=== PATIENT | male | born 1990 | race Caucasian/White ===

== ENCOUNTER 2016-07-03 20:56 | Emergency (ER) | payer MEDICAID, OTHER ==
[~2016-07-03] VITALS: Ht 167.6 cm; Wt 81.8 kg
[~2016-07-03 20:56] MED LIST: BENZ1TAB10 PO; DIVA500T35 PO; RISP2 PO; TRAZ-144 PO
[2016-07-03] MEDS ORDERED: MEDR10TA11 PO (21:06)
[2016-07-03] MEDS ORDERED: BUSP15 PO (21:06)
[2016-07-03] MEDS ORDERED: QUET25TA PO (21:06)
[2016-07-03] MEDS ORDERED: QUET400T54 PO (21:06)
[2016-07-04] MEDS ORDERED: PERTUSS(ACELL),DIPH,TET VAC/PF 0.5 ML VIAL IM ONE (00:15)
[2016-07-04] MEDS ORDERED: SILVER SULFADIAZINE 1% 20 GM CREAM TP ONE (00:15)
[2016-07-04 00:26] VITALS: BP 146/89
== END 2016-07-04 00:38 | disposition home or self-care (01) ==
LOC: EMS 20:58
DX: T24.211A Burn of second degree of right thigh, initial encounter (principal); F17.210 Nicotine dependence, cigarettes, uncomplicated; X08.8XXA Exposure to other specified smoke, fire and flames, initial encounter; Y93.89 Activity, other specified; Y92.89 Other specified places as the place of occurrence of the external cause; Y99.8 Other external cause status
CPT/HCPCS: 16020; 90471; 90715; 99284; 99406; Z7610

== ENCOUNTER 2017-04-29 21:17 | Emergency (ER) | payer OTHER ==
[~2017-04-29] VITALS: Ht 170.2 cm; Wt 72.7 kg
[~2017-04-29 21:17] MED LIST changes: +BUSP15 PO; +MEDR10TA11 PO; +QUET25TA PO; +QUET400T54 PO; -TRAZ-144 PO
[2017-04-29 22:48] VITALS: BP 132/82
== END 2017-04-29 22:54 | disposition home or self-care (01) ==
LOC: EMS 21:34
DX: S93.602A Unspecified sprain of left foot, initial encounter (principal); F17.210 Nicotine dependence, cigarettes, uncomplicated; X58.XXXA Exposure to other specified factors, initial encounter; Y93.89 Activity, other specified; Y92.89 Other specified places as the place of occurrence of the external cause; Y99.8 Other external cause status
CPT/HCPCS: 29515; 99284

== ENCOUNTER 2019-05-21 09:57 | Emergency (ER) | payer OTHER ==
[~2019-05-21] VITALS: Ht 177.8 cm; Wt 100.0 kg
[~2019-05-21 09:57] MED LIST changes: +DIVA-78 PO; -DIVA500T35 PO
[2019-05-21] MEDS ORDERED: TRAZ150 PO (10:05)
[2019-05-21] MEDS ORDERED: ATOR20TA86 PO (10:05)
[2019-05-21] MEDS ORDERED: IBUPROFEN 600 MG TABLET PO ONE (11:15)
[2019-05-21] MEDS ORDERED: CLINDAMYCIN HCL 150 MG CAPSULE PO ONE (11:15)
[2019-05-21] MEDS ORDERED: ACETAMINOPHEN 500 MG TABLET PO ONE (11:15)
[2019-05-21] MEDS ORDERED: SODIUM CHLORIDE 0.9% 1,000 ML IV ONE (12:00)
[2019-05-21] MEDS ORDERED: SODIUM CHLORIDE 0.9% 100 ML ONE (12:11)
[2019-05-21] MEDS ORDERED: IOVERSOL 350 MG/ML 100 ML VIAL ONE (12:11)
[2019-05-21 13:08] LABS: AMPHET/METH SCREEN,URINE NEGATIVE (NEGATIVE); BARBITURATE SCREEN, URINE NEGATIVE (NEGATIVE); BENZODIAZEPINES SCREEN,URINE NEGATIVE (NEGATIVE); CANNABINOID SCREEN,URINE NEGATIVE (NEGATIVE); COCAINE SCREEN,URINE NEGATIVE (NEGATIVE); METHADONE SCREEN, URINE NEGATIVE (NEGATIVE); OPIATE SCREEN,URINE NEGATIVE (NEGATIVE)
[2019-05-21 13:09] LABS: PHENCYCLIDINE SCREEN,URINE NEGATIVE (NEGATIVE)
[2019-05-21 13:18] LABS: BASOPHILS % (AUTO) 0.7 % (0.0-2.0); EOSINOPHILS % (AUTO) 0.9 % (1.0-6.0); HEMATOCRIT 38.5 % (41-53); HEMOGLOBIN 12.8 g/dL (13.5-17.5); LYMPHOCYTES # (AUTO) 2.8 K/uL (1.0-4.8); LYMPHOCYTES % (AUTO) 30.3 % (22.0-44.0); MEAN CORPUSCULAR HEMOGLOBIN 28.9 pg (26.0-34.0); MEAN CORPUSCULAR HGB CONC 33.3 G/dL (31.0-37.0); MEAN CORPUSCULAR VOLUME 87 fL (80-100); MONOCYTES # (AUTO) 1.1 K/uL (0.1-1.0); NEUTROPHILS # (AUTO) 5.2 K/uL (1.8-7.7); NEUTROPHILS % (AUTO) 56.1 % (40.0-70.0); PLATELET COUNT (AUTO) 281 K/uL (150-450); RED BLOOD CELL COUNT(AUTO) 4.43 MIL/uL (4.50-5.90); RED CELL DISTRIBUTION WIDTH 13.7 % (11.5-14.5)
[2019-05-21 13:34] LABS: ANION GAP 8 mmol/L (8-16); CALCIUM, TOTAL 8.6 mg/dL (8.8-10.5); CARBON DIOXIDE 29 mmol/L (22-29); CHLORIDE 102 mmol/L (98-107); CREATININE 0.76 mg/dL (0.60-1.30); GLOMERULAR FILTR. RATE CALC > 60 mL/min (>60); GLUCOSE,RANDOM 69 mg/dL (70-110); POTASSIUM 3.5 mmol/L (3.5-5.1); SODIUM SERUM 139 mmol/L (136-145); UREA NITROGEN, BLOOD 7 mg/dL (7-18)
[2019-05-21 13:58] LABS: CREATINE KINASE, TOTAL ONLY 97 U/L (39-308)
[2019-05-21 14:19] VITALS: BP 138/68
== END 2019-05-21 14:24 | disposition home or self-care (01) ==
LOC: EMS 09:59
DX: S02.5XXA Fracture of tooth (traumatic), initial encounter for closed fracture (principal); K02.9 Dental caries, unspecified; F17.210 Nicotine dependence, cigarettes, uncomplicated; F90.9 Attention-deficit hyperactivity disorder, unspecified type; Z79.899 Other long term (current) drug therapy; X58.XXXA Exposure to other specified factors, initial encounter; Y93.89 Activity, other specified; Y92.89 Other specified places as the place of occurrence of the external cause; Y99.8 Other external cause status
CPT/HCPCS: 36415; 70487; 80048; 80307; 82550; 85025; 99285; J7030; J7050; Q9967

== ENCOUNTER 2020-06-02 11:38 | Inpatient (IN) | payer MEDICAID, OTHER ==
[~2020-06-02] VITALS: Ht 172.7 cm; Wt 80.9 kg
[~2020-06-02 11:38] MED LIST changes: +ATOR20TA86 PO; +DIVA-112 PO; -DIVA-78 PO; -RISP2 PO; +RISP2TAB45 PO; +TRAZ150 PO
[2020-06-02 12:22] LABS: BASOPHILS % (AUTO) 0.5 % (0.0-2.0); EOSINOPHILS % (AUTO) 2.8 % (1.0-6.0); HEMATOCRIT 37.6 % (41-53); HEMOGLOBIN 12.6 g/dL (13.5-17.5); LYMPHOCYTES # (AUTO) 2.3 K/uL (1.0-4.8); LYMPHOCYTES % (AUTO) 36.4 % (22.0-44.0); MEAN CORPUSCULAR HEMOGLOBIN 28.9 pg (26.0-34.0); MEAN CORPUSCULAR HGB CONC 33.4 G/dL (31.0-37.0); MEAN CORPUSCULAR VOLUME 87 fL (80-100); MONOCYTES # (AUTO) 0.5 K/uL (0.1-1.0); MONOCYTES % (AUTO) 8.7 % (2.0-9.0); NEUTROPHILS # (AUTO) 3.2 K/uL (1.8-7.7); NEUTROPHILS % (AUTO) 51.6 % (40.0-70.0); PLATELET COUNT (AUTO) 284 K/uL (150-450); RED BLOOD CELL COUNT(AUTO) 4.34 MIL/uL (4.50-5.90); RED CELL DISTRIBUTION WIDTH 14.6 % (11.5-14.5)
[2020-06-02 12:33] LABS: APPEARANCE,URINE CLEAR (CLEAR); BILIRUBIN,URINE NEGATIVE (NEGATIVE); GLUCOSE, URINE (UA) NEGATIVE (NEGATIVE); KETONES,URINE TRACE mg/dL (NEGATIVE); LEUKOCYTE ESTERASE ,URINE NEGATIVE (NEGATIVE); NITRATE,URINE NEGATIVE (NEGATIVE); OCCULT BLOOD,URINE NEGATIVE (NEGATIVE); PH,URINE 7.5 (5.0-8.0); PROTEIN,URINE NEGATIVE (NEGATIVE); UROBILINOGEN,URINE 0.2 mg/dL (<=1.0)
[2020-06-02 12:34] LABS: ANION GAP 8 mmol/L (8-16); CARBON DIOXIDE 28 mmol/L (22-29); CHLORIDE 107 mmol/L (98-107); CREATININE 0.89 mg/dL (0.60-1.30); GLOMERULAR FILTR. RATE CALC > 60 mL/min (>60); GLUCOSE,RANDOM 70 mg/dL (70-110); POTASSIUM 4.1 mmol/L (3.5-5.1); SODIUM SERUM 143 mmol/L (136-145); UREA NITROGEN, BLOOD 8 mg/dL (7-18)
[2020-06-02 12:37] LABS: AMPHET/METH SCREEN,URINE POSITIVE (NEGATIVE); BARBITURATE SCREEN, URINE NEGATIVE (NEGATIVE); BENZODIAZEPINES SCREEN,URINE NEGATIVE (NEGATIVE); CANNABINOID SCREEN,URINE NEGATIVE (NEGATIVE); COCAINE SCREEN,URINE NEGATIVE (NEGATIVE); METHADONE SCREEN, URINE NEGATIVE (NEGATIVE); OPIATE SCREEN,URINE NEGATIVE (NEGATIVE); PHENCYCLIDINE SCREEN,URINE NEGATIVE (NEGATIVE)
[2020-06-02 12:41] LABS: ALANINE AMINOTRANSFERASE 18 U/L (12-78); ALBUMIN 3.5 g/dL (3.4-5.0); ALKALINE PHOSPHATASE 60 U/L (46-116); ASPARTATE AMINOTRANSFERASE 7 U/L (15-37); BILIRUBIN,TOTAL 0.2 mg/dL (0.1-1.0); TOTAL PROTEIN, SERUM 6.9 g/dL (6.4-8.2)
[2020-06-02] MEDS ORDERED: HALOPERIDOL 5 MG TABLET PO PRN (16:00)
[2020-06-02] MEDS ORDERED: ZOLPIDEM TARTRATE 10 MG TABLET PO PRN (16:00)
[2020-06-02] MEDS ORDERED: LORazepam 2 MG TABLET PO PRN (16:00)
[2020-06-02 17:13] LABS: COVID AG,FIA SOURCE NASAL SWAB
[2020-06-02] MEDS ORDERED: INFLUENZA VIRUS VACCINE QVS 2020-21 (6MO+)/PF 60 MCG/0.5 ML SYRINGE IM ONE (19:30)
[2020-06-02 19:40] VITALS: BP 131/70
[2020-06-03 04:26] VITALS: BP 127/68
[2020-06-03] MEDS ORDERED: PETROLATUM,WHITE 28 GM JELLY TP PRN (07:15)
[2020-06-03] MEDS ORDERED: ALBUTEROL SULFATE HFA 90 MCG/PUFF 8 GM INHALER IH PRN (07:15)
[2020-06-03] MEDS ORDERED: NICOTINE 14 MG/24 HOUR PATCH TD PRN (07:15)
[2020-06-03] MEDS ORDERED: MAGNESIUM HYDROXIDE SUSPENSION 30 ML UDCUP PO PRN (07:15)
[2020-06-03] MEDS ORDERED: CloNIDine HCL 0.1 MG TABLET PO PRN (07:15)
[2020-06-03] MEDS ORDERED: ONDANSETRON HCL 4 MG TABLET PO PRN (07:15)
[2020-06-03] MEDS ORDERED: MAG HYDROX/AL HYDROX/SIMETH ES 30 ML SUSPENSION UDCUP PO PRN (07:15)
[2020-06-03] MEDS ORDERED: GuaiFENesin/D-METHORPHAN [SUGAR-FREE] 200-20MG/10 ML SYRUP UDCUP PO PRN (07:15)
[2020-06-03] MEDS ORDERED: DOCUSATE SODIUM 100 MG CAPSULE PO PRN (07:15)
[2020-06-03] MEDS ORDERED: LOPERAMIDE HCL 2 MG CAPSULE PO PRN (07:15)
[2020-06-03] MEDS ORDERED: ACETAMINOPHEN 325 MG TABLET PO PRN (07:15)
[2020-06-03] MEDS ORDERED: IBUPROFEN 400 MG TABLET PO PRN (07:15)
[2020-06-03 08:06] VITALS: BP 112/62
[2020-06-03] MEDS: ATORVASTATIN CALCIUM 20 MG TABLET PO SCH (10:32)
[2020-06-03] MEDS: DIVALPROEX SODIUM 500 MG DR TABLET PO SCH ×2 (12:08→16:42)
[2020-06-03] MEDS: BENZTROPINE MESYLATE 1 MG TABLET PO SCH ×2 (12:09→16:42)
[2020-06-03] MEDS: RisperiDONE 2 MG TABLET PO SCH ×2 (12:09→16:42)
[2020-06-03] MEDS: QUEtiapine FUMARATE 200 MG ER TABLET PO SCH ×2 (12:09→16:42)
[2020-06-03] MEDS: BusPIRone HCL 15 MG TABLET PO SCH ×2 (12:09→16:42)
[2020-06-03 16:29] VITALS: BP 115/70
[2020-06-03] MEDS: TraZODone HCL 150 MG TABLET PO SCH (20:40)
[2020-06-04 00:05] VITALS: BP 111/60
[2020-06-04 08:06] VITALS: BP 122/71
[2020-06-04] MEDS: ATORVASTATIN CALCIUM 20 MG TABLET PO SCH (08:14)
[2020-06-04] MEDS: QUEtiapine FUMARATE 200 MG ER TABLET PO SCH ×2 (08:14→16:20)
[2020-06-04] MEDS: DIVALPROEX SODIUM 500 MG DR TABLET PO SCH ×2 (08:14→16:20)
[2020-06-04] MEDS: BusPIRone HCL 15 MG TABLET PO SCH ×2 (08:14→16:20)
[2020-06-04] MEDS: BENZTROPINE MESYLATE 1 MG TABLET PO SCH ×2 (08:14→16:20)
[2020-06-04] MEDS: RisperiDONE 2 MG TABLET PO SCH ×2 (08:14→16:20)
[2020-06-04 16:05] VITALS: BP 118/69
[2020-06-04] MEDS: TraZODone HCL 150 MG TABLET PO SCH (21:50)
[2020-06-05 06:25] VITALS: BP 114/64
[2020-06-05 08:26] VITALS: BP 124/68
[2020-06-05] MEDS: QUEtiapine FUMARATE 200 MG ER TABLET PO SCH ×2 (08:36→16:31)
[2020-06-05] MEDS: BusPIRone HCL 15 MG TABLET PO SCH ×2 (08:36→16:31)
[2020-06-05] MEDS: DIVALPROEX SODIUM 500 MG DR TABLET PO SCH ×2 (08:36→16:31)
[2020-06-05] MEDS: BENZTROPINE MESYLATE 1 MG TABLET PO SCH ×2 (08:36→16:31)
[2020-06-05] MEDS: ATORVASTATIN CALCIUM 20 MG TABLET PO SCH (08:36)
[2020-06-05] MEDS: RisperiDONE 2 MG TABLET PO SCH ×2 (08:36→16:31)
[2020-06-05 16:25] VITALS: BP 125/76
[2020-06-05] MEDS: TraZODone HCL 150 MG TABLET PO SCH (20:54)
[2020-06-06 06:32] VITALS: BP 119/69
[2020-06-06 08:22] VITALS: BP 117/58
[2020-06-06] MEDS: DIVALPROEX SODIUM 500 MG DR TABLET PO SCH ×2 (08:32→16:11)
[2020-06-06] MEDS: RisperiDONE 2 MG TABLET PO SCH ×2 (08:32→16:11)
[2020-06-06] MEDS: ATORVASTATIN CALCIUM 20 MG TABLET PO SCH (08:32)
[2020-06-06] MEDS: BENZTROPINE MESYLATE 1 MG TABLET PO SCH ×2 (08:32→16:11)
[2020-06-06] MEDS: QUEtiapine FUMARATE 200 MG ER TABLET PO SCH ×2 (08:32→16:11)
[2020-06-06] MEDS: BusPIRone HCL 15 MG TABLET PO SCH ×2 (08:32→16:11)
[2020-06-06 16:03] VITALS: BP 118/78
== END 2020-06-06 16:25 | disposition home or self-care (01) | DRG 750 ==
LOC: EMS 11:38 → B2S 17:18
DX: F25.1 Schizoaffective disorder, depressive type (principal); R45.851 Suicidal ideations; F15.10 Other stimulant abuse, uncomplicated; F19.10 Other psychoactive substance abuse, uncomplicated; F43.10 Post-traumatic stress disorder, unspecified; E78.5 Hyperlipidemia, unspecified; D64.9 Anemia, unspecified; F90.9 Attention-deficit hyperactivity disorder, unspecified type; R62.50 Unspecified lack of expected normal physiological development in childhood; F17.210 Nicotine dependence, cigarettes, uncomplicated; Z20.822 Contact with and (suspected) exposure to COVID-19
CPT/HCPCS: 87426; 99285; G0480

== ENCOUNTER 2021-08-20 10:17 | Emergency (ER) | payer MEDICAID, OTHER ==
[~2021-08-20] VITALS: Ht 172.7 cm; Wt 72.7 kg
[~2021-08-20 10:17] MED LIST changes: -BENZ1TAB10 PO; +BENZ1TAB96 PO; -MEDR10TA11 PO; -QUET25TA PO; -TRAZ150 PO; +TRAZ150T80 PO
[2021-08-20 12:28] VITALS: BP 132/88
[2021-08-20] MEDS ORDERED: DOXY-354 PO (12:57)
[2021-08-20] MEDS ORDERED: DOXYCYCLINE HYCLATE 100 MG TABLET PO ONE (13:00)
== END 2021-08-20 13:13 | disposition home or self-care (01) ==
LOC: EMS 10:17
DX: L02.512 Cutaneous abscess of left hand (principal); E78.00 Pure hypercholesterolemia, unspecified; F20.9 Schizophrenia, unspecified; F31.9 Bipolar disorder, unspecified; G40.909 Epilepsy, unspecified, not intractable, without status epilepticus; F17.210 Nicotine dependence, cigarettes, uncomplicated; F90.9 Attention-deficit hyperactivity disorder, unspecified type; G20 Parkinson's disease
CPT/HCPCS: 10060; 99283

== ENCOUNTER 2021-10-28 12:40 | Emergency (ER) | payer OTHER ==
[~2021-10-28] VITALS: Ht 170.2 cm; Wt 60.9 kg
[~2021-10-28 12:40] MED LIST changes: +DOXY-354 PO
[2021-10-28 18:37] LABS: BASOPHILS % (AUTO) 0.5 % (0.0-2.0); EOSINOPHILS % (AUTO) 2.1 % (1.0-6.0); HEMATOCRIT 38.1 % (41-53); HEMOGLOBIN 12.5 g/dL (13.5-17.5); LYMPHOCYTES # (AUTO) 3.1 K/uL (1.0-4.8); MEAN CORPUSCULAR HEMOGLOBIN 28.4 pg (26.0-34.0); MEAN CORPUSCULAR HGB CONC 32.9 G/dL (31.0-37.0); MEAN CORPUSCULAR VOLUME 86 fL (80-100); MONOCYTES # (AUTO) 1.3 K/uL (0.1-1.0); MONOCYTES % (AUTO) 15.1 % (2.0-9.0); NEUTROPHILS # (AUTO) 3.9 K/uL (1.8-7.7); NEUTROPHILS % (AUTO) 46.3 % (40.0-70.0); PLATELET COUNT (AUTO) 261 K/uL (150-450); RED BLOOD CELL COUNT(AUTO) 4.41 MIL/uL (4.50-5.90); RED CELL DISTRIBUTION WIDTH 14.9 % (11.5-14.5)
[2021-10-28 18:49] LABS: ANION GAP 13 mmol/L (8-16); CALCIUM, TOTAL 8.5 mg/dL (8.8-10.5); CARBON DIOXIDE 29 mmol/L (22-29); CHLORIDE 103 mmol/L (98-107); CREATININE 0.86 mg/dL (0.60-1.30); GLOMERULAR FILTR. RATE CALC > 60 mL/min (>60); GLUCOSE,RANDOM 78 mg/dL (70-110); POTASSIUM 3.4 mmol/L (3.5-5.1); SODIUM SERUM 145 mmol/L (136-145); UREA NITROGEN, BLOOD 19 mg/dL (7-18)
[2021-10-28 18:57] LABS: ALANINE AMINOTRANSFERASE 18 U/L (12-78); ALBUMIN 3.5 g/dL (3.4-5.0); ALKALINE PHOSPHATASE 87 U/L (46-116); ASPARTATE AMINOTRANSFERASE 15 U/L (15-37); BILIRUBIN,TOTAL 0.3 mg/dL (0.1-1.0); TOTAL PROTEIN, SERUM 6.7 g/dL (6.4-8.2); VALPROIC ACID 29 mcg/mL (50-100)
[2021-10-28 19:21] LABS: COVID AG,FIA SOURCE NASOPHARYNGEAL
[2021-10-28] MEDS ORDERED: RisperiDONE CONC 2 MG/2 ML SOLUTION ORAL.SYG PO ONE (20:15)
[2021-10-28] MEDS ORDERED: LORazepam 1 MG TABLET PO ONE (20:15)
[2021-10-29 02:35] VITALS: BP 121/73
== END 2021-10-29 02:41 | disposition home or self-care (01) ==
LOC: EMS 12:42
DX: F15.10 Other stimulant abuse, uncomplicated (principal); F41.9 Anxiety disorder, unspecified; F31.9 Bipolar disorder, unspecified; E78.00 Pure hypercholesterolemia, unspecified; F20.9 Schizophrenia, unspecified; F90.9 Attention-deficit hyperactivity disorder, unspecified type; G20 Parkinson's disease; G40.909 Epilepsy, unspecified, not intractable, without status epilepticus; I34.0 Nonrheumatic mitral (valve) insufficiency; F17.210 Nicotine dependence, cigarettes, uncomplicated; Z86.59 Personal history of other mental and behavioral disorders; Z20.822 Contact with and (suspected) exposure to COVID-19
CPT/HCPCS: 99284; 71045; 87426; 80053; 80164; 85025; 36415; G0480

== ENCOUNTER 2021-12-05 12:01 | Emergency (ER) | payer OTHER ==
[~2021-12-05] VITALS: Ht 175.3 cm; Wt 60.5 kg
[2021-12-05] MEDS ORDERED: ATOR20TA86 PO (14:24)
[2021-12-05] MEDS ORDERED: BENZ1TAB96 PO (14:25)
[2021-12-05] MEDS ORDERED: BUSP15 PO (14:25)
[2021-12-05] MEDS ORDERED: DIVA-112 PO (14:26)
[2021-12-05] MEDS ORDERED: RISP2TAB45 PO (14:27)
[2021-12-05] MEDS ORDERED: QUET400T54 PO (14:27)
[2021-12-05] MEDS ORDERED: TRAZ150T80 PO (14:28)
[2021-12-05 15:17] VITALS: BP 136/85
== END 2021-12-05 15:18 | disposition home or self-care (01) ==
LOC: EMS 12:19
DX: S22.41XD Multiple fractures of ribs, right side, subsequent encounter for fracture with routine healing (principal); F31.9 Bipolar disorder, unspecified; E78.00 Pure hypercholesterolemia, unspecified; F20.9 Schizophrenia, unspecified; G40.909 Epilepsy, unspecified, not intractable, without status epilepticus; F17.210 Nicotine dependence, cigarettes, uncomplicated; F12.90 Cannabis use, unspecified, uncomplicated; F19.90 Other psychoactive substance use, unspecified, uncomplicated; Z76.0 Encounter for issue of repeat prescription; Z91.030 Bee allergy status; W19.XXXD Unspecified fall, subsequent encounter
CPT/HCPCS: 71101; 99283

== ENCOUNTER 2021-12-22 13:53 | Emergency (ER) | payer OTHER ==
[~2021-12-22] VITALS: Ht 167.6 cm; Wt 79.5 kg
[~2021-12-22 13:53] MED LIST changes: -DOXY-354 PO
[2021-12-22 15:16] LABS: BASOPHILS % (AUTO) 0.8 % (0.0-2.0); EOSINOPHILS % (AUTO) 0.5 % (1.0-6.0); HEMATOCRIT 38.8 % (41-53); HEMOGLOBIN 12.7 g/dL (13.5-17.5); LYMPHOCYTES # (AUTO) 2.4 K/uL (1.0-4.8); LYMPHOCYTES % (AUTO) 21.4 % (22.0-44.0); MEAN CORPUSCULAR HEMOGLOBIN 28.6 pg (26.0-34.0); MEAN CORPUSCULAR HGB CONC 32.8 G/dL (31.0-37.0); MEAN CORPUSCULAR VOLUME 87 fL (80-100); MONOCYTES # (AUTO) 1.7 K/uL (0.1-1.0); MONOCYTES % (AUTO) 15.1 % (2.0-9.0); NEUTROPHILS # (AUTO) 7.1 K/uL (1.8-7.7); NEUTROPHILS % (AUTO) 62.2 % (40.0-70.0); PLATELET COUNT (AUTO) 260 K/uL (150-450); RED BLOOD CELL COUNT(AUTO) 4.45 MIL/uL (4.50-5.90); RED CELL DISTRIBUTION WIDTH 14.8 % (11.5-14.5)
[2021-12-22 15:24] LABS: ANION GAP 7 mmol/L (8-16); CALCIUM, TOTAL 9.3 mg/dL (8.8-10.5); CARBON DIOXIDE 29 mmol/L (22-29); CHLORIDE 102 mmol/L (98-107); CREATININE 1.02 mg/dL (0.60-1.30); GLUCOSE,RANDOM 88 mg/dL (70-110); POTASSIUM 3.6 mmol/L (3.5-5.1); SODIUM SERUM 138 mmol/L (136-145); UREA NITROGEN, BLOOD 23 mg/dL (7-18)
[2021-12-22 15:25] LABS: GLOMERULAR FILTR. RATE CALC > 60 mL/min (>60)
[2021-12-22 15:29] LABS: ALANINE AMINOTRANSFERASE 18 U/L (12-78); ALBUMIN 4.5 g/dL (3.4-5.0); ALKALINE PHOSPHATASE 84 U/L (46-116); ASPARTATE AMINOTRANSFERASE 26 U/L (15-37); BILIRUBIN,TOTAL 0.8 mg/dL (0.1-1.0); TOTAL PROTEIN, SERUM 7.7 g/dL (6.4-8.2)
[2021-12-22] MEDS ORDERED: LORazepam 2 MG/ML VIAL IM ONE (17:15)
[2021-12-22] MEDS ORDERED: HALOPERIDOL LACTATE 5 MG/ML VIAL IM ONE (17:15)
[2021-12-22 18:27] VITALS: BP 132/80
== END 2021-12-22 19:00 | disposition home or self-care (01) ==
LOC: EMS 13:57
DX: F15.10 Other stimulant abuse, uncomplicated (principal); F20.9 Schizophrenia, unspecified; F31.9 Bipolar disorder, unspecified; E78.00 Pure hypercholesterolemia, unspecified; F90.9 Attention-deficit hyperactivity disorder, unspecified type; G20 Parkinson's disease; G40.909 Epilepsy, unspecified, not intractable, without status epilepticus; I34.0 Nonrheumatic mitral (valve) insufficiency; F17.210 Nicotine dependence, cigarettes, uncomplicated; F12.90 Cannabis use, unspecified, uncomplicated; Z86.59 Personal history of other mental and behavioral disorders; Z91.030 Bee allergy status
CPT/HCPCS: 99284; 80053; 85025; 36415; 96372; G0480; J1630; J2060

== ENCOUNTER 2022-01-01 19:53 | Inpatient (IN) | payer MEDICAID ==
[~2022-01-01] VITALS: Ht 170.2 cm; Wt 54.9 kg
[2022-01-02] MEDS ORDERED: HALOPERIDOL 5 MG TABLET PO PRN (02:00)
[2022-01-02] MEDS ORDERED: ZOLPIDEM TARTRATE 10 MG TABLET PO PRN (02:00)
[2022-01-02 02:34] VITALS: BP 117/73
[2022-01-02 08:32] VITALS: BP 135/73
[2022-01-02] MEDS ORDERED: IBUPROFEN 400 MG TABLET PO PRN (09:15)
[2022-01-02] MEDS ORDERED: ALBUTEROL SULFATE HFA 90 MCG/PUFF 8 GM INHALER IH PRN (09:15)
[2022-01-02] MEDS ORDERED: DOCUSATE SODIUM 100 MG CAPSULE PO PRN (09:15)
[2022-01-02] MEDS ORDERED: NICOTINE 14 MG/24 HOUR PATCH TD PRN (09:15)
[2022-01-02] MEDS ORDERED: MAGNESIUM HYDROXIDE SUSPENSION 30 ML UDCUP PO PRN (09:15)
[2022-01-02] MEDS ORDERED: PETROLATUM,WHITE 28 GM JELLY TP PRN (09:15)
[2022-01-02] MEDS ORDERED: ONDANSETRON HCL 4 MG TABLET PO PRN (09:15)
[2022-01-02] MEDS ORDERED: MAG HYDROX/AL HYDROX/SIMETH ES 30 ML SUSPENSION UDCUP PO PRN (09:15)
[2022-01-02] MEDS ORDERED: CloNIDine HCL 0.1 MG TABLET PO PRN (09:15)
[2022-01-02] MEDS ORDERED: LOPERAMIDE HCL 2 MG CAPSULE PO PRN (09:15)
[2022-01-02] MEDS ORDERED: GuaiFENesin/D-METHORPHAN [SUGAR-FREE] 200-20MG/10 ML SYRUP UDCUP PO PRN (09:15)
[2022-01-02] MEDS ORDERED: ACETAMINOPHEN 325 MG TABLET PO PRN (09:15)
[2022-01-02] MEDS: RisperiDONE 2 MG TABLET PO SCH ×2 (11:38→20:19)
[2022-01-02] MEDS: DIVALPROEX SODIUM 500 MG DR TABLET PO SCH ×2 (11:38→20:19)
[2022-01-02 21:04] VITALS: BP 126/72
[2022-01-03 07:14] LABS: HEMOGLOBIN A1C 5.1 % (3.8-5.6)
[2022-01-03 07:25] LABS: CHOL/HDL RATIO 2.4 (4.2-7.3); FREE T4 (FREE THYROXINE) 0.95 ng/dL (0.76-1.46)
[2022-01-03 08:23] VITALS: BP 128/66
[2022-01-03] MEDS: ATORVASTATIN CALCIUM 20 MG TABLET PO SCH (08:57)
[2022-01-03] MEDS: RisperiDONE 2 MG TABLET PO SCH ×2 (08:57→20:11)
[2022-01-03] MEDS: DIVALPROEX SODIUM 500 MG DR TABLET PO SCH ×2 (08:58→20:11)
[2022-01-03 20:08] VITALS: BP 106/71
[2022-01-04 03:44] VITALS: BP 107/72
[2022-01-04 08:12] VITALS: BP 120/80
[2022-01-04] MEDS: RisperiDONE 2 MG TABLET PO SCH ×2 (08:47→20:31)
[2022-01-04] MEDS: DIVALPROEX SODIUM 500 MG DR TABLET PO SCH ×2 (08:47→20:31)
[2022-01-04] MEDS: ATORVASTATIN CALCIUM 20 MG TABLET PO SCH (08:48)
[2022-01-04 20:19] VITALS: BP 116/74
[2022-01-05 08:36] VITALS: BP 116/73
[2022-01-05] MEDS: DIVALPROEX SODIUM 500 MG DR TABLET PO SCH ×2 (08:57→20:14)
[2022-01-05] MEDS: RisperiDONE 2 MG TABLET PO SCH ×2 (08:57→20:14)
[2022-01-05] MEDS: ATORVASTATIN CALCIUM 20 MG TABLET PO SCH (08:57)
[2022-01-05] MEDS: LORazepam 2 MG TABLET PO PRN (16:53)
[2022-01-05 20:10] VITALS: BP 120/64
[2022-01-06 08:09] VITALS: BP 122/64
[2022-01-06] MEDS: RisperiDONE 2 MG TABLET PO SCH ×2 (08:37→20:28)
[2022-01-06] MEDS: ATORVASTATIN CALCIUM 20 MG TABLET PO SCH (08:37)
[2022-01-06] MEDS: DIVALPROEX SODIUM 500 MG DR TABLET PO SCH ×2 (08:37→20:28)
[2022-01-06 20:06] VITALS: BP 112/60
[2022-01-07 08:20] VITALS: BP 118/66
[2022-01-07] MEDS: RisperiDONE 2 MG TABLET PO SCH ×2 (08:34→20:05)
[2022-01-07] MEDS: DIVALPROEX SODIUM 500 MG DR TABLET PO SCH ×2 (08:34→20:05)
[2022-01-07] MEDS: ATORVASTATIN CALCIUM 20 MG TABLET PO SCH (08:34)
[2022-01-07 09:41] LABS: GLUCOMETER DEV NAME(LOC) POC.BV
[2022-01-07 20:05] VITALS: BP 129/68
[2022-01-08 08:16] VITALS: BP 108/61
[2022-01-08] MEDS: DIVALPROEX SODIUM 500 MG DR TABLET PO SCH ×2 (09:07→20:35)
[2022-01-08] MEDS: ATORVASTATIN CALCIUM 20 MG TABLET PO SCH (09:07)
[2022-01-08] MEDS: RisperiDONE 2 MG TABLET PO SCH ×2 (09:07→20:35)
[2022-01-08 20:50] VITALS: BP 125/70
[2022-01-09] MEDS: ATORVASTATIN CALCIUM 20 MG TABLET PO SCH (08:22)
[2022-01-09] MEDS: RisperiDONE 2 MG TABLET PO SCH ×2 (08:22→20:07)
[2022-01-09] MEDS: DIVALPROEX SODIUM 500 MG DR TABLET PO SCH ×2 (08:22→20:07)
[2022-01-09 08:37] VITALS: BP 114/68
[2022-01-09 20:40] VITALS: BP 114/74
[2022-01-10] MEDS: RisperiDONE 2 MG TABLET PO SCH ×2 (09:12→20:29)
[2022-01-10] MEDS: DIVALPROEX SODIUM 500 MG DR TABLET PO SCH ×2 (09:12→20:29)
[2022-01-10] MEDS: ATORVASTATIN CALCIUM 20 MG TABLET PO SCH (09:12)
[2022-01-10 11:32] VITALS: BP 110/67
[2022-01-10 20:21] VITALS: BP 127/72
[2022-01-11] MEDS: ATORVASTATIN CALCIUM 20 MG TABLET PO SCH (08:10)
[2022-01-11] MEDS: DIVALPROEX SODIUM 500 MG DR TABLET PO SCH ×2 (08:10→20:16)
[2022-01-11] MEDS: RisperiDONE 2 MG TABLET PO SCH ×2 (08:10→20:16)
[2022-01-11 08:50] VITALS: BP 104/60
[2022-01-11 20:28] VITALS: BP 114/75
[2022-01-12 08:05] VITALS: BP 112/60
[2022-01-12] MEDS: RisperiDONE 2 MG TABLET PO SCH ×2 (09:20→21:05)
[2022-01-12] MEDS: DIVALPROEX SODIUM 500 MG DR TABLET PO SCH ×2 (09:20→21:05)
[2022-01-12] MEDS: ATORVASTATIN CALCIUM 20 MG TABLET PO SCH (09:20)
[2022-01-12 20:38] VITALS: BP 127/78
[2022-01-13 00:27] VITALS: BP 109/71
[2022-01-13] MEDS: ATORVASTATIN CALCIUM 20 MG TABLET PO SCH (08:07)
[2022-01-13] MEDS: DIVALPROEX SODIUM 500 MG DR TABLET PO SCH ×2 (08:07→20:06)
[2022-01-13] MEDS: RisperiDONE 2 MG TABLET PO SCH ×2 (08:07→20:06)
[2022-01-13 08:43] VITALS: BP 106/61
[2022-01-13] MEDS: LORazepam 2 MG TABLET PO PRN (15:39)
[2022-01-13 20:31] VITALS: BP 113/70
[2022-01-14] MEDS: DIVALPROEX SODIUM 500 MG DR TABLET PO SCH ×2 (08:20→20:07)
[2022-01-14] MEDS: ATORVASTATIN CALCIUM 20 MG TABLET PO SCH (08:20)
[2022-01-14] MEDS: RisperiDONE 2 MG TABLET PO SCH ×2 (08:20→20:07)
[2022-01-14 08:27] VITALS: BP 108/69
[2022-01-14 11:33] LABS: GLUCOMETER DEV NAME(LOC) POC.BV
[2022-01-14] MEDS: LORazepam 2 MG TABLET PO PRN (16:17)
[2022-01-14 20:15] VITALS: BP 110/67
[2022-01-15 08:07] VITALS: BP 103/69
[2022-01-15] MEDS: DIVALPROEX SODIUM 500 MG DR TABLET PO SCH ×2 (09:09→20:30)
[2022-01-15] MEDS: RisperiDONE 2 MG TABLET PO SCH ×2 (09:09→20:30)
[2022-01-15] MEDS: ATORVASTATIN CALCIUM 20 MG TABLET PO SCH (09:09)
[2022-01-15 20:36] VITALS: BP 105/60
[2022-01-16 08:25] VITALS: BP 105/60
[2022-01-16] MEDS: ATORVASTATIN CALCIUM 20 MG TABLET PO SCH (09:14)
[2022-01-16] MEDS: RisperiDONE 2 MG TABLET PO SCH (09:14)
[2022-01-16] MEDS: DIVALPROEX SODIUM 500 MG DR TABLET PO SCH (09:14)
[2022-01-16] MEDS ORDERED: RISP2TAB45 PO (11:12)
[2022-01-16] MEDS ORDERED: ATOR20TA86 PO (11:12)
[2022-01-16] MEDS ORDERED: DIVA-112 PO (11:12)
== END 2022-01-16 13:10 | disposition home or self-care (01) | DRG 750 ==
LOC: B2S 01-02 01:10
PROVIDERS: ADMIT Psychiatry & Neurology Psychiatry; ATTEND Psychiatry & Neurology Psychiatry
DX: F25.0 Schizoaffective disorder, bipolar type (principal); R45.850 Homicidal ideations; R45.851 Suicidal ideations; F79 Unspecified intellectual disabilities; E78.5 Hyperlipidemia, unspecified; Z20.822 Contact with and (suspected) exposure to COVID-19; F15.10 Other stimulant abuse, uncomplicated; F41.9 Anxiety disorder, unspecified; F90.9 Attention-deficit hyperactivity disorder, unspecified type; G47.00 Insomnia, unspecified; Z79.899 Other long term (current) drug therapy; Z91.51 Personal history of suicidal behavior
CPT/HCPCS: 80061; 80164; 83036; 84439

== ENCOUNTER 2022-03-10 17:48 | Inpatient (IN) | payer MEDICAID ==
[~2022-03-10 17:48] MED LIST changes: -BENZ1TAB96 PO; -BUSP15 PO; -QUET400T54 PO; -TRAZ150T80 PO
[2022-03-10] MEDS ORDERED: LORazepam 2 MG TABLET PO PRN (19:15)
[2022-03-10] MEDS ORDERED: ZOLPIDEM TARTRATE 10 MG TABLET PO PRN (19:15)
[2022-03-10] MEDS ORDERED: HALOPERIDOL 5 MG TABLET PO PRN (19:15)
[2022-03-10] MEDS ORDERED: INFLUENZA VIRUS VACCINE QVS 2022-23 (6MO+)/PF 60 MCG/0.5 ML SYRINGE IM. ONE (20:15)
[2022-03-10 20:44] VITALS: BP 112/74
[2022-03-11 08:08] VITALS: BP 133/77
[2022-03-11] MEDS ORDERED: NICOTINE 14 MG/24 HOUR PATCH TD PRN (17:30)
[2022-03-11] MEDS ORDERED: CloNIDine HCL 0.1 MG TABLET PO PRN (17:30)
[2022-03-11] MEDS ORDERED: PETROLATUM,WHITE 28 GM JELLY TP PRN (17:30)
[2022-03-11] MEDS ORDERED: ACETAMINOPHEN 325 MG TABLET PO PRN (17:30)
[2022-03-11] MEDS ORDERED: MAGNESIUM HYDROXIDE SUSPENSION 30 ML UDCUP PO PRN (17:30)
[2022-03-11] MEDS ORDERED: DOCUSATE SODIUM 100 MG CAPSULE PO PRN (17:30)
[2022-03-11] MEDS ORDERED: ALBUTEROL SULFATE HFA 90 MCG/PUFF 8 GM INHALER IH PRN (17:30)
[2022-03-11] MEDS ORDERED: ONDANSETRON HCL 4 MG TABLET PO PRN (17:30)
[2022-03-11] MEDS ORDERED: IBUPROFEN 400 MG TABLET PO PRN (17:30)
[2022-03-11] MEDS ORDERED: MAG HYDROX/AL HYDROX/SIMETH ES 30 ML SUSPENSION UDCUP PO PRN (17:30)
[2022-03-11] MEDS ORDERED: GuaiFENesin/D-METHORPHAN [SUGAR-FREE] 200-20MG/10 ML SYRUP UDCUP PO PRN (17:30)
[2022-03-11] MEDS ORDERED: LOPERAMIDE HCL 2 MG CAPSULE PO PRN (17:30)
[2022-03-11 20:00] VITALS: BP 132/76
[2022-03-11] MEDS: DIVALPROEX SODIUM 500 MG DR TABLET PO SCH (20:34)
[2022-03-11] MEDS: RisperiDONE 2 MG TABLET PO SCH (20:34)
[2022-03-12] MEDS: RisperiDONE 2 MG TABLET PO SCH ×2 (08:08→20:43)
[2022-03-12] MEDS: ATORVASTATIN CALCIUM 20 MG TABLET PO SCH (08:08)
[2022-03-12] MEDS: DIVALPROEX SODIUM 500 MG DR TABLET PO SCH ×2 (08:08→20:43)
[2022-03-12 08:34] VITALS: BP 137/77
[2022-03-12 20:10] VITALS: BP 132/82
[2022-03-13] MEDS: ATORVASTATIN CALCIUM 20 MG TABLET PO SCH (08:16)
[2022-03-13] MEDS: DIVALPROEX SODIUM 500 MG DR TABLET PO SCH (08:16)
[2022-03-13] MEDS: RisperiDONE 2 MG TABLET PO SCH (08:16)
[2022-03-13 08:47] VITALS: BP 128/71
[2022-03-13] MEDS ORDERED: MULTIVITAMINS WITH MINERALS, THERAPEUTIC TABLET PO ONE (11:15)
[2022-03-13] MEDS ORDERED: DIVA-112 PO (14:19)
[2022-03-13] MEDS ORDERED: RISP2TAB86 PO (14:19)
[2022-03-13] MEDS ORDERED: ATOR20TA65 PO (14:19)
== END 2022-03-13 22:37 | disposition home or self-care (01) | DRG 750 ==
LOC: B3A 19:07
PROVIDERS: ADMIT Psychiatry & Neurology Child & Adolescent Psychiatry; ATTEND Psychiatry & Neurology Child & Adolescent Psychiatry
DX: F25.1 Schizoaffective disorder, depressive type (principal); Z91.199 Patient's noncompliance with other medical treatment and regimen due to unspecified reason; E78.5 Hyperlipidemia, unspecified; G47.00 Insomnia, unspecified; Z20.822 Contact with and (suspected) exposure to COVID-19; F99 Mental disorder, not otherwise specified

== ENCOUNTER 2022-07-20 18:15 | Inpatient (IN) | payer MEDICAID, OTHER ==
[~2022-07-20] VITALS: Ht 167.6 cm; Wt 78.5 kg
[~2022-07-20 18:15] MED LIST changes: +ATOR20TA65 PO; -ATOR20TA86 PO; -RISP2TAB45 PO; +RISP2TAB86 PO
[2022-07-20 20:13] LABS: ANION GAP 6 mmol/L (8-16); CALCIUM, TOTAL 8.6 mg/dL (8.8-10.5); CARBON DIOXIDE 28 mmol/L (22-29); CHLORIDE 107 mmol/L (98-107); CREATININE 0.85 mg/dL (0.60-1.30); GLOMERULAR FILTR. RATE CALC > 60 mL/min (>60); GLUCOSE,RANDOM 92 mg/dL (70-110); POTASSIUM 3.8 mmol/L (3.5-5.1); SODIUM SERUM 141 mmol/L (136-145); UREA NITROGEN, BLOOD 13 mg/dL (7-18)
[2022-07-20 20:18] LABS: BASOPHILS % (AUTO) 0.6 % (0.0-2.0); EOSINOPHILS % (AUTO) 1.2 % (1.0-6.0); HEMATOCRIT 37.8 % (41-53); HEMOGLOBIN 12.4 g/dL (13.5-17.5); LYMPHOCYTES # (AUTO) 2.2 K/uL (1.0-4.8); MEAN CORPUSCULAR HEMOGLOBIN 29.3 pg (26.0-34.0); MEAN CORPUSCULAR HGB CONC 32.7 G/dL (31.0-37.0); MEAN CORPUSCULAR VOLUME 89 fL (80-100); MONOCYTES # (AUTO) 0.8 K/uL (0.1-1.0); MONOCYTES % (AUTO) 10.4 % (2.0-9.0); NEUTROPHILS # (AUTO) 4.3 K/uL (1.8-7.7); NEUTROPHILS % (AUTO) 57.8 % (40.0-70.0); PLATELET COUNT (AUTO) 253 K/uL (150-450); RED BLOOD CELL COUNT(AUTO) 4.23 MIL/uL (4.50-5.90); RED CELL DISTRIBUTION WIDTH 14.4 % (11.5-14.5)
[2022-07-20 20:20] LABS: ALANINE AMINOTRANSFERASE 17 U/L (12-78); ALBUMIN 3.7 g/dL (3.4-5.0); ALKALINE PHOSPHATASE 67 U/L (46-116); ASPARTATE AMINOTRANSFERASE 12 U/L (15-37); BILIRUBIN,TOTAL 0.2 mg/dL (0.1-1.0)
[2022-07-20] MEDS ORDERED: CloNIDine HCL 0.1 MG TABLET PO PRN (20:45)
[2022-07-20] MEDS ORDERED: TUBERCULIN, PURIFIED PROTEIN DERIVATIVE 5 TU/0.1 ML SYRINGE ID ONE (20:45)
[2022-07-20] MEDS ORDERED: MAG HYDROX/AL HYDROX/SIMETH ES 30 ML SUSPENSION UDCUP PO PRN ×2 (20:45)
[2022-07-20] MEDS ORDERED: OLANZapine 5 MG RAPDIS TABLET PO PRN (20:45)
[2022-07-20] MEDS ORDERED: ACETAMINOPHEN 325 MG TABLET PO PRN (20:45)
[2022-07-20] MEDS ORDERED: PROMETHAZINE HCL 25 MG TABLET PO PRN (20:45)
[2022-07-20] MEDS ORDERED: MAGNESIUM HYDROXIDE SUSPENSION 30 ML UDCUP PO PRN (20:45)
[2022-07-20] MEDS ORDERED: GuaiFENesin/D-METHORPHAN [SUGAR-FREE] 200-20MG/10 ML SYRUP UDCUP PO PRN (20:45)
[2022-07-20] MEDS ORDERED: HydrOXYzine PAMOATE 50 MG CAPSULE PO PRN ×2 (20:45)
[2022-07-20] MEDS ORDERED: LOPERAMIDE HCL 2 MG CAPSULE PO PRN (20:45)
[2022-07-20] MEDS ORDERED: IBUPROFEN 600 MG TABLET PO PRN (20:45)
[2022-07-20 22:11] LABS: COVID AG,FIA SOURCE NASOPHARYNGEAL
[2022-07-20 23:30] VITALS: BP 124/75
[2022-07-21] VITALS (7 sets, daily range): BP systolic 96–110; BP diastolic 60–67
[2022-07-21] MEDS: ZOLPIDEM TARTRATE 10 MG TABLET PO PRN (00:07)
[2022-07-21] MEDS: ACAMPROSATE CALCIUM 333 MG DR TABLET PO SCH ×5 (00:07→16:08)
[2022-07-21] MEDS: MELATONIN 5 MG TABLET PO SCH ×2 (00:09→20:16)
[2022-07-21] MEDS: OLANZapine 5 MG RAPDIS TABLET PO SCH ×2 (00:11→20:16)
[2022-07-21] MEDS: DIVALPROEX SODIUM 500 MG ER TABLET PO SCH ×2 (00:12→20:15)
[2022-07-21] MEDS: THIAMINE 100 MG TABLET PO SCH ×3 (00:12→16:08)
[2022-07-21] MEDS: CloNIDine HCL 0.1 MG TABLET PO SCH ×5 (00:19→22:18)
[2022-07-21] MEDS: OMEGA-3/DHA/EPA/FISH OIL 1,000 MG CAPSULE PO SCH (08:33)
[2022-07-21] MEDS: MULTIVITAMINS WITH MINERALS, THERAPEUTIC TABLET PO SCH (08:34)
[2022-07-21] MEDS: FOLIC ACID 1 MG TABLET PO SCH (08:34)
[2022-07-21] MEDS: FLUoxetine HCL 20 MG CAPSULE PO SCH (08:34)
[2022-07-21] MEDS ORDERED: PALIPERIDONE PALMITATE 234 MG/1.5 ML SYRINGE IM ONE (09:00)
[2022-07-21] MEDS: NICOTINE 14 MG/24 HOUR PATCH TD SCH (09:52)
[2022-07-22 06:00] VITALS: BP 110/70
[2022-07-22] MEDS: CloNIDine HCL 0.1 MG TABLET PO SCH ×4 (06:10→21:30)
[2022-07-22] MEDS: ACAMPROSATE CALCIUM 333 MG DR TABLET PO SCH ×3 (08:08→17:03)
[2022-07-22] MEDS: MULTIVITAMINS WITH MINERALS, THERAPEUTIC TABLET PO SCH (08:09)
[2022-07-22] MEDS: OMEGA-3/DHA/EPA/FISH OIL 1,000 MG CAPSULE PO SCH (08:09)
[2022-07-22] MEDS: THIAMINE 100 MG TABLET PO SCH ×2 (08:09→17:03)
[2022-07-22] MEDS: FLUoxetine HCL 20 MG CAPSULE PO SCH (08:09)
[2022-07-22] MEDS: FOLIC ACID 1 MG TABLET PO SCH (08:09)
[2022-07-22] MEDS: NICOTINE 14 MG/24 HOUR PATCH TD SCH (08:10)
[2022-07-22 08:37] LABS: HEMOGLOBIN A1C 4.9 % (3.8-5.6)
[2022-07-22 08:40] VITALS: BP 100/55
[2022-07-22 08:40] LABS: CHOL/HDL RATIO 2.9 (4.2-7.3); FREE T4 (FREE THYROXINE) 0.98 ng/dL (0.76-1.46); THYROID STIMULATING HORMONE 0.6 uIU/mL (0.36-3.74)
[2022-07-22 08:57] VITALS: BP 100/55
[2022-07-22] MEDS: MELATONIN 5 MG TABLET PO SCH (20:07)
[2022-07-22] MEDS: DIVALPROEX SODIUM 500 MG ER TABLET PO SCH (20:07)
[2022-07-22] MEDS: OLANZapine 10 MG RAPDIS TABLET PO SCH (20:07)
[2022-07-22 20:10] VITALS: BP 104/62
[2022-07-22 21:19] VITALS: BP 104/62
[2022-07-23] MEDS: CloNIDine HCL 0.1 MG TABLET PO SCH ×4 (06:01→21:04)
[2022-07-23 08:07] VITALS: BP 97/59
[2022-07-23 08:17] VITALS: BP 97/59
[2022-07-23] MEDS: FOLIC ACID 1 MG TABLET PO SCH (08:18)
[2022-07-23] MEDS: OMEGA-3/DHA/EPA/FISH OIL 1,000 MG CAPSULE PO SCH (08:18)
[2022-07-23] MEDS: THIAMINE 100 MG TABLET PO SCH ×2 (08:18→16:18)
[2022-07-23] MEDS: FLUoxetine HCL 20 MG CAPSULE PO SCH (08:18)
[2022-07-23] MEDS: NICOTINE 14 MG/24 HOUR PATCH TD SCH (08:18)
[2022-07-23] MEDS: MULTIVITAMINS WITH MINERALS, THERAPEUTIC TABLET PO SCH (08:18)
[2022-07-23] MEDS: ACAMPROSATE CALCIUM 333 MG DR TABLET PO SCH ×3 (08:18→16:18)
[2022-07-23] MEDS: MELATONIN 5 MG TABLET PO SCH (19:58)
[2022-07-23] MEDS: DIVALPROEX SODIUM 500 MG ER TABLET PO SCH (19:59)
[2022-07-23] MEDS: OLANZapine 10 MG RAPDIS TABLET PO SCH (19:59)
[2022-07-23 20:10] VITALS: BP 106/63
[2022-07-23 20:56] VITALS: BP 106/63
[2022-07-24] MEDS: CloNIDine HCL 0.1 MG TABLET PO SCH ×4 (06:00→20:34)
[2022-07-24] MEDS: FLUoxetine HCL 20 MG CAPSULE PO SCH (09:00)
[2022-07-24] MEDS: FOLIC ACID 1 MG TABLET PO SCH (09:00)
[2022-07-24] MEDS: OMEGA-3/DHA/EPA/FISH OIL 1,000 MG CAPSULE PO SCH (09:01)
[2022-07-24] MEDS: NICOTINE 14 MG/24 HOUR PATCH TD SCH (09:01)
[2022-07-24] MEDS: ACAMPROSATE CALCIUM 333 MG DR TABLET PO SCH ×3 (09:03→16:25)
[2022-07-24] MEDS: MULTIVITAMINS WITH MINERALS, THERAPEUTIC TABLET PO SCH (09:03)
[2022-07-24] MEDS: THIAMINE 100 MG TABLET PO SCH ×2 (09:03→16:25)
[2022-07-24 10:07] VITALS: BP 110/66
[2022-07-24 10:08] VITALS: BP 110/66
[2022-07-24 20:09] VITALS: BP 105/68
[2022-07-24] MEDS: DIVALPROEX SODIUM 500 MG ER TABLET PO SCH (20:34)
[2022-07-24] MEDS: MELATONIN 5 MG TABLET PO SCH (20:34)
[2022-07-24] MEDS: OLANZapine 10 MG RAPDIS TABLET PO SCH (20:35)
[2022-07-24 21:55] VITALS: BP 109/63
[2022-07-25 06:13] VITALS: BP 137/85
[2022-07-25] MEDS: CloNIDine HCL 0.1 MG TABLET PO SCH ×4 (06:13→21:58)
[2022-07-25] MEDS: OMEGA-3/DHA/EPA/FISH OIL 1,000 MG CAPSULE PO SCH (08:53)
[2022-07-25] MEDS: MULTIVITAMINS WITH MINERALS, THERAPEUTIC TABLET PO SCH (08:54)
[2022-07-25] MEDS: ACAMPROSATE CALCIUM 333 MG DR TABLET PO SCH ×3 (08:54→16:39)
[2022-07-25] MEDS: THIAMINE 100 MG TABLET PO SCH ×2 (08:54→16:39)
[2022-07-25] MEDS: FLUoxetine HCL 20 MG CAPSULE PO SCH (08:54)
[2022-07-25] MEDS: NICOTINE 14 MG/24 HOUR PATCH TD SCH (08:54)
[2022-07-25] MEDS: FOLIC ACID 1 MG TABLET PO SCH (08:54)
[2022-07-25] MEDS ORDERED: PALIPERIDONE PALMITATE 156 MG/ML SYRINGE IM ONE (09:00)
[2022-07-25 10:15] VITALS: BP 122/76
[2022-07-25 20:09] VITALS: BP 106/62
[2022-07-25] MEDS: MELATONIN 5 MG TABLET PO SCH (20:18)
[2022-07-25] MEDS: DIVALPROEX SODIUM 500 MG ER TABLET PO SCH (20:18)
[2022-07-25] MEDS: OLANZapine 10 MG RAPDIS TABLET PO SCH (20:18)
[2022-07-25 20:47] VITALS: BP 106/62
[2022-07-26] MEDS: CloNIDine HCL 0.1 MG TABLET PO SCH ×4 (06:04→22:09)
[2022-07-26] MEDS: FLUoxetine HCL 20 MG CAPSULE PO SCH (08:09)
[2022-07-26] MEDS: ACAMPROSATE CALCIUM 333 MG DR TABLET PO SCH ×3 (08:09→16:37)
[2022-07-26] MEDS: FOLIC ACID 1 MG TABLET PO SCH (08:09)
[2022-07-26] MEDS: OMEGA-3/DHA/EPA/FISH OIL 1,000 MG CAPSULE PO SCH (08:09)
[2022-07-26] MEDS: THIAMINE 100 MG TABLET PO SCH ×2 (08:09→16:37)
[2022-07-26] MEDS: MULTIVITAMINS WITH MINERALS, THERAPEUTIC TABLET PO SCH (08:09)
[2022-07-26] MEDS: NICOTINE 14 MG/24 HOUR PATCH TD SCH (08:12)
[2022-07-26 09:20] VITALS: BP 101/65
[2022-07-26] MEDS: LORazepam 2 MG TABLET PO PRN (12:25)
[2022-07-26 20:09] VITALS: BP 108/64
[2022-07-26] MEDS: DIVALPROEX SODIUM 500 MG ER TABLET PO SCH (20:12)
[2022-07-26] MEDS: OLANZapine 10 MG RAPDIS TABLET PO SCH (20:12)
[2022-07-26] MEDS: MELATONIN 5 MG TABLET PO SCH (20:13)
[2022-07-27 05:53] VITALS: BP 103/66
[2022-07-27] MEDS: CloNIDine HCL 0.1 MG TABLET PO SCH ×4 (05:55→23:16)
[2022-07-27 06:31] LABS: GLUCOMETER DEV NAME(LOC) POC.BV
[2022-07-27 08:38] VITALS: BP 100/60
[2022-07-27] MEDS: THIAMINE 100 MG TABLET PO SCH ×2 (08:39→16:16)
[2022-07-27] MEDS: OMEGA-3/DHA/EPA/FISH OIL 1,000 MG CAPSULE PO SCH (08:39)
[2022-07-27] MEDS: FLUoxetine HCL 20 MG CAPSULE PO SCH (08:39)
[2022-07-27] MEDS: ACAMPROSATE CALCIUM 333 MG DR TABLET PO SCH ×3 (08:39→16:16)
[2022-07-27] MEDS: MULTIVITAMINS WITH MINERALS, THERAPEUTIC TABLET PO SCH (08:39)
[2022-07-27] MEDS: FOLIC ACID 1 MG TABLET PO SCH (08:39)
[2022-07-27] MEDS: NICOTINE 14 MG/24 HOUR PATCH TD SCH (08:41)
[2022-07-27] MEDS: BACITRACIN 28 GM OINTMENT TP SCH ×2 (09:46→16:20)
[2022-07-27] MEDS: OLANZapine 10 MG RAPDIS TABLET PO SCH (20:00)
[2022-07-27] MEDS: DIVALPROEX SODIUM 500 MG ER TABLET PO SCH (20:01)
[2022-07-27] MEDS: MELATONIN 5 MG TABLET PO SCH (20:01)
[2022-07-27 20:19] VITALS: BP 125/67
[2022-07-28 05:43] VITALS: BP 101/60
[2022-07-28] MEDS: CloNIDine HCL 0.1 MG TABLET PO SCH ×4 (06:08→22:07)
[2022-07-28] MEDS: MULTIVITAMINS WITH MINERALS, THERAPEUTIC TABLET PO SCH (08:21)
[2022-07-28] MEDS: THIAMINE 100 MG TABLET PO SCH ×2 (08:21→16:02)
[2022-07-28] MEDS: OMEGA-3/DHA/EPA/FISH OIL 1,000 MG CAPSULE PO SCH (08:21)
[2022-07-28] MEDS: ACAMPROSATE CALCIUM 333 MG DR TABLET PO SCH ×3 (08:21→16:03)
[2022-07-28] MEDS: ATOMOXETINE HCL 10 MG CAPSULE PO SCH (08:21)
[2022-07-28] MEDS: FOLIC ACID 1 MG TABLET PO SCH (08:21)
[2022-07-28] MEDS: FLUoxetine HCL 20 MG CAPSULE PO SCH (08:21)
[2022-07-28] MEDS: NICOTINE 14 MG/24 HOUR PATCH TD SCH (08:23)
[2022-07-28] MEDS: BACITRACIN 28 GM OINTMENT TP SCH ×2 (08:23→16:03)
[2022-07-28 08:26] VITALS: BP 122/79
[2022-07-28] MEDS: LORazepam 2 MG TABLET PO PRN (10:41)
[2022-07-28 20:05] VITALS: BP 114/68
[2022-07-28] MEDS: MELATONIN 5 MG TABLET PO SCH (20:32)
[2022-07-28] MEDS: DIVALPROEX SODIUM 500 MG ER TABLET PO SCH (20:32)
[2022-07-28] MEDS: OLANZapine 10 MG RAPDIS TABLET PO SCH (20:32)
[2022-07-29] MEDS: CloNIDine HCL 0.1 MG TABLET PO SCH ×4 (06:01→21:07)
[2022-07-29] MEDS: ACAMPROSATE CALCIUM 333 MG DR TABLET PO SCH ×3 (08:22→16:30)
[2022-07-29] MEDS: OMEGA-3/DHA/EPA/FISH OIL 1,000 MG CAPSULE PO SCH (08:22)
[2022-07-29] MEDS: THIAMINE 100 MG TABLET PO SCH ×2 (08:23→16:29)
[2022-07-29] MEDS: FLUoxetine HCL 20 MG CAPSULE PO SCH (08:23)
[2022-07-29] MEDS: FOLIC ACID 1 MG TABLET PO SCH (08:23)
[2022-07-29] MEDS: MULTIVITAMINS WITH MINERALS, THERAPEUTIC TABLET PO SCH (08:23)
[2022-07-29] MEDS: ATOMOXETINE HCL 10 MG CAPSULE PO SCH (08:24)
[2022-07-29] MEDS: NICOTINE 14 MG/24 HOUR PATCH TD SCH (08:32)
[2022-07-29] MEDS: BACITRACIN 28 GM OINTMENT TP SCH ×2 (09:00→16:31)
[2022-07-29 09:04] VITALS: BP 112/61
[2022-07-29] MEDS: LORazepam 2 MG TABLET PO PRN (14:47)
[2022-07-29] MEDS: MELATONIN 5 MG TABLET PO SCH (20:22)
[2022-07-29] MEDS: DIVALPROEX SODIUM 500 MG ER TABLET PO SCH (20:22)
[2022-07-29] MEDS: OLANZapine 10 MG RAPDIS TABLET PO SCH (20:23)
[2022-07-29 20:24] VITALS: BP 123/75
[2022-07-29 21:06] VITALS: BP 114/65
[2022-07-30] MEDS: CloNIDine HCL 0.1 MG TABLET PO SCH ×4 (06:05→22:08)
[2022-07-30 06:43] VITALS: BP 102/70
[2022-07-30] MEDS: OMEGA-3/DHA/EPA/FISH OIL 1,000 MG CAPSULE PO SCH (08:12)
[2022-07-30] MEDS: ACAMPROSATE CALCIUM 333 MG DR TABLET PO SCH ×2 (08:12→12:33)
[2022-07-30] MEDS: FLUoxetine HCL 20 MG CAPSULE PO SCH (08:12)
[2022-07-30] MEDS: ATOMOXETINE HCL 10 MG CAPSULE PO SCH (08:13)
[2022-07-30] MEDS: MULTIVITAMINS WITH MINERALS, THERAPEUTIC TABLET PO SCH (08:13)
[2022-07-30] MEDS: FOLIC ACID 1 MG TABLET PO SCH (08:13)
[2022-07-30] MEDS: NICOTINE 14 MG/24 HOUR PATCH TD SCH (08:15)
[2022-07-30] MEDS: BACITRACIN 28 GM OINTMENT TP SCH ×2 (08:20→16:03)
[2022-07-30 08:27] VITALS: BP 122/80
[2022-07-30] MEDS: LORazepam 2 MG TABLET PO PRN (10:57)
[2022-07-30] MEDS ORDERED: GABAPENTIN 300 MG CAPSULE PO PRN (14:45)
[2022-07-30 20:05] VITALS: BP 132/78
[2022-07-30] MEDS: DIVALPROEX SODIUM 500 MG ER TABLET PO SCH (20:10)
[2022-07-30] MEDS: MELATONIN 5 MG TABLET PO SCH (20:10)
[2022-07-30] MEDS: OLANZapine 10 MG RAPDIS TABLET PO SCH (20:10)
[2022-07-31 06:06] VITALS: BP 102/68
[2022-07-31] MEDS: CloNIDine HCL 0.1 MG TABLET PO SCH ×4 (06:10→21:58)
[2022-07-31 08:41] VITALS: BP 108/62
[2022-07-31] MEDS: MULTIVITAMINS WITH MINERALS, THERAPEUTIC TABLET PO SCH (08:56)
[2022-07-31] MEDS: NALTREXONE HCL 50 MG TABLET PO SCH (08:56)
[2022-07-31] MEDS: OMEGA-3/DHA/EPA/FISH OIL 1,000 MG CAPSULE PO SCH (08:56)
[2022-07-31] MEDS: ATOMOXETINE HCL 18 MG CAPSULE PO SCH (08:57)
[2022-07-31] MEDS: NICOTINE 14 MG/24 HOUR PATCH TD SCH (08:57)
[2022-07-31] MEDS: FLUoxetine HCL 20 MG CAPSULE PO SCH (08:57)
[2022-07-31] MEDS: BACITRACIN 28 GM OINTMENT TP SCH ×2 (09:09→17:11)
[2022-07-31] MEDS ORDERED: NALT50TA PO (20:08)
[2022-07-31] MEDS ORDERED: MELA5TAB40 PO (20:08)
[2022-07-31] MEDS ORDERED: ATOM18CA7 PO (20:08)
[2022-07-31] MEDS ORDERED: FLUO20CA36 PO (20:08)
[2022-07-31] MEDS ORDERED: DIVA500T69 PO (20:08)
[2022-07-31] MEDS ORDERED: OMEG-135 PO (20:08)
[2022-07-31] MEDS ORDERED: OLAN10TA26 PO (20:08)
[2022-07-31 20:15] VITALS: BP 129/79
[2022-07-31] MEDS: MELATONIN 5 MG TABLET PO SCH (20:20)
[2022-07-31] MEDS: DIVALPROEX SODIUM 500 MG ER TABLET PO SCH (20:20)
[2022-07-31] MEDS: ZOLPIDEM TARTRATE 10 MG TABLET PO PRN (20:20)
[2022-07-31] MEDS: OLANZapine 10 MG RAPDIS TABLET PO SCH (20:20)
[2022-08-01 06:06] VITALS: BP 111/67
[2022-08-01] MEDS: CloNIDine HCL 0.1 MG TABLET PO SCH ×4 (06:19→21:54)
[2022-08-01] MEDS: OMEGA-3/DHA/EPA/FISH OIL 1,000 MG CAPSULE PO SCH (08:32)
[2022-08-01] MEDS: FLUoxetine HCL 20 MG CAPSULE PO SCH (08:32)
[2022-08-01] MEDS: ATOMOXETINE HCL 18 MG CAPSULE PO SCH (08:33)
[2022-08-01] MEDS: NALTREXONE HCL 50 MG TABLET PO SCH (08:33)
[2022-08-01] MEDS: MULTIVITAMINS WITH MINERALS, THERAPEUTIC TABLET PO SCH (08:33)
[2022-08-01 08:37] VITALS: BP 112/63
[2022-08-01] MEDS: BACITRACIN 28 GM OINTMENT TP SCH ×2 (09:00→16:38)
[2022-08-01] MEDS: NICOTINE 14 MG/24 HOUR PATCH TD SCH (09:35)
[2022-08-01] MEDS ORDERED: PALIPERIDONE PALMITATE 156 MG/ML SYRINGE IM ONE (16:00)
[2022-08-01 20:32] VITALS: BP 126/77
[2022-08-01] MEDS: DIVALPROEX SODIUM 500 MG ER TABLET PO SCH (20:33)
[2022-08-01] MEDS: OLANZapine 10 MG RAPDIS TABLET PO SCH (20:34)
[2022-08-01] MEDS: MELATONIN 5 MG TABLET PO SCH (21:00)
== END 2022-08-01 22:10 | disposition home or self-care (01) | DRG 750 ==
LOC: EMS 18:16 → B3A 21:00
PROVIDERS: ADMIT Psychiatry & Neurology Psychiatry; ATTEND Psychiatry & Neurology Psychiatry
DX: F25.9 Schizoaffective disorder, unspecified (principal); G20 Parkinson's disease; R45.851 Suicidal ideations; G40.909 Epilepsy, unspecified, not intractable, without status epilepticus; F70 Mild intellectual disabilities; E78.00 Pure hypercholesterolemia, unspecified; Z20.822 Contact with and (suspected) exposure to COVID-19; F17.210 Nicotine dependence, cigarettes, uncomplicated; F90.9 Attention-deficit hyperactivity disorder, unspecified type; F19.10 Other psychoactive substance abuse, uncomplicated; F60.0 Paranoid personality disorder; F31.9 Bipolar disorder, unspecified; Z91.030 Bee allergy status; Z79.899 Other long term (current) drug therapy
CPT/HCPCS: 80053; 80061; 80164; 83036; 84439; 84443; 85025; 86592; 87081; 99285; G0480; Q9967

== ENCOUNTER 2022-11-10 03:48 | Emergency (ER) | payer MEDICAID ==
[~2022-11-10] VITALS: Ht 172.7 cm; Wt 88.1 kg
[~2022-11-10 03:48] MED LIST changes: +ATOM18CA7 PO; -ATOR20TA65 PO; -DIVA-112 PO; +DIVA500T69 PO; +FLUO20CA36 PO; +MELA5TAB40 PO; +NALT50TA PO; +OLAN10TA26 PO; +OMEG-135 PO; -RISP2TAB86 PO
[2022-11-10 04:05] VITALS: BP 118/80; PULSE 120; RESP 20; TEMP 98.8
[2022-11-10 04:21] LABS: BASOPHILS % (AUTO) 0.9 % (0.0-2.0); EOSINOPHILS % (AUTO) 1.8 % (1.0-6.0); HEMATOCRIT 33.6 % (41-53); HEMOGLOBIN 11.2 g/dL (13.5-17.5); LYMPHOCYTES # (AUTO) 2.2 K/uL (1.0-4.8); LYMPHOCYTES % (AUTO) 27.3 % (22.0-44.0); MEAN CORPUSCULAR HEMOGLOBIN 28.9 pg (26.0-34.0); MEAN CORPUSCULAR HGB CONC 33.3 G/dL (31.0-37.0); MEAN CORPUSCULAR VOLUME 87 fL (80-100); MONOCYTES # (AUTO) 1.1 K/uL (0.1-1.0); MONOCYTES % (AUTO) 13.4 % (2.0-9.0); NEUTROPHILS # (AUTO) 4.5 K/uL (1.8-7.7); NEUTROPHILS % (AUTO) 56.6 % (40.0-70.0); PLATELET COUNT (AUTO) 238 K/uL (150-450); RED BLOOD CELL COUNT(AUTO) 3.87 MIL/uL (4.50-5.90); RED CELL DISTRIBUTION WIDTH 15.8 % (11.5-14.5)
[2022-11-10 04:50] LABS: BARBITURATE SCREEN, URINE NEGATIVE (NEGATIVE); BENZODIAZEPINES SCREEN,URINE NEGATIVE (NEGATIVE); METHADONE SCREEN, URINE NEGATIVE (NEGATIVE)
[2022-11-10 04:54] LABS: ANION GAP 10 mmol/L (8-16); CALCIUM, TOTAL 8.5 mg/dL (8.8-10.5); CARBON DIOXIDE 26 mmol/L (22-29); CHLORIDE 103 mmol/L (98-107); CREATININE 0.83 mg/dL (0.60-1.30); GLOMERULAR FILTR. RATE CALC > 60 mL/min (>60); GLUCOSE,RANDOM 94 mg/dL (70-110); POTASSIUM 3.4 mmol/L (3.5-5.1); SODIUM SERUM 139 mmol/L (136-145)
[2022-11-10 04:58] LABS: AMPHET/METH SCREEN,URINE NEGATIVE (NEGATIVE); CANNABINOID SCREEN,URINE NEGATIVE (NEGATIVE); COCAINE SCREEN,URINE NEGATIVE (NEGATIVE); OPIATE SCREEN,URINE NEGATIVE (NEGATIVE); PHENCYCLIDINE SCREEN,URINE NEGATIVE (NEGATIVE)
[2022-11-10 04:59] LABS: ALANINE AMINOTRANSFERASE 26 U/L (12-78); ALBUMIN 3.4 g/dL (3.4-5.0); ALKALINE PHOSPHATASE 83 U/L (46-116); ASPARTATE AMINOTRANSFERASE 21 U/L (15-37); BILIRUBIN,TOTAL 0.6 mg/dL (0.1-1.0); TOTAL PROTEIN, SERUM 6.6 g/dL (6.4-8.2); VALPROIC ACID 4 mcg/mL (50-100)
[2022-11-10] MEDS ORDERED: LORazepam 2 MG TABLET PO ONE (05:45)
== END 2022-11-10 05:59 | disposition home or self-care (01) ==
LOC: EMS 03:48
DX: F15.129 Other stimulant abuse with intoxication, unspecified (principal); F20.9 Schizophrenia, unspecified; F31.9 Bipolar disorder, unspecified; F12.90 Cannabis use, unspecified, uncomplicated; Z91.038 Other insect allergy status; F15.10 Other stimulant abuse, uncomplicated
CPT/HCPCS: 80053; 80164; 85025; 36415; 99283; 93005; 80307 ×2; G0480; 99284